=== PATIENT | male | born 1985 | race African-American/Black ===

== ENCOUNTER 2019-06-14 16:25 | Emergency (ER) | payer OTHER ==
[~2019-06-14] VITALS: Ht 175.3 cm; Wt 75.0 kg
[2019-06-14 17:13] VITALS: BP 107/52
== END 2019-06-14 17:15 | disposition home or self-care (01) ==
LOC: ER 16:25
DX: S00.83XA Contusion of other part of head, initial encounter (principal); S20.212A Contusion of left front wall of thorax, initial encounter; S09.8XXA Other specified injuries of head, initial encounter; J45.909 Unspecified asthma, uncomplicated; H11.32 Conjunctival hemorrhage, left eye; Y08.89XA Assault by other specified means, initial encounter; Y93.89 Activity, other specified; Y92.89 Other specified places as the place of occurrence of the external cause; Y99.8 Other external cause status
CPT/HCPCS: 99283